=== PATIENT | female | born 1945 | race Caucasian/White ===

== ENCOUNTER → 2017-07-15 | Outpatient (CLI) | payer MEDICARE, OTHER | LOC: LAB 08:03 → RAD 08:03 | DX: K80.20 Calculus of gallbladder without cholecystitis without obstruction (principal) ==

== ENCOUNTER → 2017-09-28 | Outpatient (CLI) | payer MEDICARE, OTHER | LOC: RAD 14:00 | DX: K76.0 Fatty (change of) liver, not elsewhere classified (principal); R18.8 Other ascites ==